=== PATIENT | female | born 1950 | race American Indian/Alaskan Native ===

== ENCOUNTER 2017-02-03 10:00 | Outpatient (CLI) | payer MEDICARE, OTHER ==
--- NOTE | 2017-02-03 10:53 | XRay Report ---
XRAY BILATERAL KNEE THREE VIEWS EACH STANDIN02/03/17 10:00:00 CLINICAL: Bilateral knee pain. FINDINGS: Right: Mild osteopenia. No fracture or dislocation. Moderate medial joint space narrowing with large osteophytes. Slight widening of the lateral joint space. Minimal patellofemoral joint arthritis. No joint effusion. Normal soft tissues. Left: Mild osteopenia. No fracture or dislocation. Medial joint space narrowing with small osteophytes. Slight widening of the lateral joint space. Minimal patellofemoral joint arthritis. No joint effusion.Normal soft tissues. IMPRESSION: Bilateral medial joint space osteoarthritis. Minimal patellofemoral joint osteoarthritis.
== END 2017-02-03 10:01 | disposition home or self-care (01) ==
LOC: SPVIMAG 10:00
PROVIDERS: ATTEND Orthopaedic Surgery Sports Medicine
DX: M17.0 Bilateral primary osteoarthritis of knee (principal); M85.862 Other specified disorders of bone density and structure, left lower leg; M85.861 Other specified disorders of bone density and structure, right lower leg; M25.762 Osteophyte, left knee; M25.761 Osteophyte, right knee

== ENCOUNTER 2017-06-28 08:17 | Outpatient (CLI) | payer MEDICARE, OTHER ==
[2017-06-28 09:18] LABS: Blood Urea Nitrogen 13 mg/dL (7-17)
--- NOTE | 2017-06-28 12:21 | Cat Scan Report ---
CT chest with contrast: Left breast cancer followup. Following IV contrast transverse images are obtained through the chest into the upper abdomen. Coronal and sagittal 2-D images included. Comparison is made to prior exam in December 2015. There has been interval removal of a right breast implant. There are stable calcifications in the left thyroid lobe. No axillary, hilar or mediastinal adenopathy appreciated. No pulmonary nodules noted. Smooth pleural surfaces. The visualized liver is normal. No suspicious osseous changes. Impression: No evidence of metastatic or recurrent malignancy.
--- NOTE | 2017-06-28 13:04 | Cat Scan Report ---
CT abdomen and pelvis with contrast: Breast malignancy followup. Following IV and oral contrast images are obtained through the abdomen and pelvis with coronal and sagittal 2-D reformatted images. Comparison made to prior exam on December 30, 2015. The abdominal organs are unremarkable. There is a stable 3.6 cm cyst in the right kidney and 8.7 mm cyst on the left. The retroperitoneal structures are not otherwise remarkable. The partially opacified bowel and mesentery appear normal. Normal-sized uterus with a cluster of calcifications. Lower lumbar spine apophyseal arthropathy and degenerative gas in the L4-5 interspace. Left hip prosthesis. No bony metastases identified. Impression: Stable findings. No evidence of metastatic disease.
== END 2017-06-28 08:18 | disposition home or self-care (01) ==
LOC: CT 08:17
PROVIDERS: ATTEND Internal Medicine Hematology & Oncology
DX: C50.912 Malignant neoplasm of unspecified site of left female breast (principal); I97.2 Postmastectomy lymphedema syndrome; L58.9 Radiodermatitis, unspecified; E07.89 Other specified disorders of thyroid; N28.1 Cyst of kidney, acquired; M12.88 Other specific arthropathies, not elsewhere classified, other specified site; M79.89 Other specified soft tissue disorders; Z96.642 Presence of left artificial hip joint; Z17.0 Estrogen receptor positive status [ER+]
CPT/HCPCS: 36415; 71260; 74177; 82565; 84520; Q9967

== ENCOUNTER 2017-09-11 11:24 | Outpatient (CLI) | payer MEDICARE, OTHER ==
--- NOTE | 2017-09-11 15:30 | Mammography Report ---
BONE DEXA:09/11/17 11:24:00 CLINICAL: Postmenopausal and history of left breast cancer on Arimidex. TECHNIQUE: Two site bone DEXA performed on an Hologic scanner. FINDINGS: The average BMD of the lumbar spine L1-L4 is 1.119g/cm squared with a T-score of -0.3 and a Z-score of +1.9. The average BMD of the right hip is 0.931g/cm squared with a T-score of -0.6 and a Z-score of +0.4. IMPRESSION: WHO classification: Normal with average fracture risk based on both spine and right hip measurements. RECOMMENDATION: Clinical correlation and routine screening. DEFINITIONS: BMD = Bone Mineral Density T-score = BMD related to mean peak bone mass of young adult (mean expressed in Standard Deviation) Z-score = Age matched BMD expressed in SD World Health Organization (WHO) Diagnostic Criteria Normal T-score > -1 SD Osteopenia T-score between -1 and -2.4 SD Osteoporosis T-score -2.5 SD or below NOTE: BMD is not the only risk factor for fracture. One should also consider factors such as the patient's age, risk of falling, previous osteoporotic fracture, family history of osteoporotic fractures, current smoker, and low body weight. Z-scores are not calculated if >80 years of age.
== END 2017-09-11 11:25 | disposition home or self-care (01) ==
LOC: SPVWC 11:24
PROVIDERS: ATTEND Internal Medicine Hematology & Oncology
DX: Z13.820 Encounter for screening for osteoporosis (principal); L58.9 Radiodermatitis, unspecified; Z17.0 Estrogen receptor positive status [ER+]; Z78.0 Asymptomatic menopausal state; Z85.3 Personal history of malignant neoplasm of breast
CPT/HCPCS: 77080

== ENCOUNTER 2020-05-18 07:05 | Outpatient (CLI) | payer MEDICARE, OTHER ==
--- NOTE | 2020-05-18 08:02 | Ultrasound Report ---
Limited bilateral axillary Ultrasound HISTORY: MALIGNANT NEOPLASM. Patient with history of bilateral mastectomy presents with right axilla ry discomfort TECHNIQUE: Grayscale and color imaging performed. COMPARISON: CT chest from 06/28/2017 FINDINGS: There are a couple shoddy right axillary lymph nodes with largest measuring 9 mm in short a xis. There is no asymmetric cortical thickening. No abnormality seen in the left axilla. IMPRESSION: A couple shoddy right axillary lymph nodes are noted which do not appear to be grossly pa thologic; however, given the patient's history, clinical follow-up with close attention recommended t o ensure resolution. Signer Name: Tom West MD Signed: 05/18/2020 7:58 AM Workstation Name: [id number]
== END 2020-05-18 07:06 | disposition home or self-care (01) ==
LOC: US 07:05
PROVIDERS: ATTEND Internal Medicine Hematology & Oncology
DX: C50.912 Malignant neoplasm of unspecified site of left female breast (principal); M79.89 Other specified soft tissue disorders; I97.2 Postmastectomy lymphedema syndrome; L58.9 Radiodermatitis, unspecified; Z17.0 Estrogen receptor positive status [ER+]

== ENCOUNTER 2021-01-25 09:18 | Outpatient (CLI) | payer MEDICARE, OTHER ==
--- NOTE | 2021-01-25 10:02 | Ultrasound Report ---
ULTRASOUND BREAST RIGHT LIMITED, 01/25/2021 CLINICAL INFORMATION / INDICATION: Follow-up right axillary lymph nodes. History of bilateral mastect alesia with soreness in the right axilla TECHNIQUE: Targeted ultrasound evaluation was performed of the area of interest. COMPARISON: 05/18/2020 FINDINGS: 3 lymph nodes are identified in the right axilla. These measure up to 7 mm in short axis the cortex a ppears thin and these have normal fatty moody and are morphologically unremarkable. IMPRESSION: No sonographic evidence of malignancy. The right axillary lymph nodes are morphologically unremarkable. Follow up recommendation: Clinical exam BI-RADS Category 2: Benign. A normal or "negative" report should not preclude biopsy or follow-up of a clinically suspicious find ing. Signer Name: Vikram Moreira MD Signed: 01/25/2021 9:58 AM Workstation Name: [id number]
== END 2021-01-25 09:19 | disposition home or self-care (01) ==
LOC: US 09:18
DX: R92.8 Other abnormal and inconclusive findings on diagnostic imaging of breast (principal)

== ENCOUNTER 2021-05-06 10:28 | Outpatient (CLI) | payer MEDICARE, OTHER ==
--- NOTE | 2021-05-06 12:02 | Ultrasound Report ---
ULTRASOUND AXILLA RIGHT LIMITED, 05/06/2021 CLINICAL INFORMATION / INDICATION: RIGHT AXILLARY PAIN WITH SHOTTY NODE. TECHNIQUE: Targeted ultrasound evaluation was performed of the area of interest. COMPARISON: 01/25/2021 FINDINGS: Examination of the axilla in the area of pain shows several benign-appearing small lymph no suman. One deep node with short axis diameter of 9 mm has a slightly thickened cortex at just under 4 m m though probably has not changed significantly from prior study. A superficial mixed echogenicity po ssible lymph node is seen which if a node has a normal cortical thickness though this may just be gregor ast tissue. No lesions are seen thought likely to be significant. IMPRESSION: Probably benign axillary nodes are seen Follow up recommendation: Clinical correlation is suggested. If there is immediate concern mammograph y could be performed as best possible to view the axilla. Otherwise I would recommend follow-up in 6 months with ultrasound and BI-RADS Category 3: PROBABLY BENIGN. Followup in 6 months. A normal or "negative" report should not preclude biopsy or follow-up of a clinically suspicious find ing. Signer Name: Skinny Ruth MD Signed: 05/06/2021 11:58 AM Workstation Name: [id number]
== END 2021-05-06 10:29 | disposition home or self-care (01) ==
LOC: US 10:28
PROVIDERS: ATTEND Internal Medicine Hematology & Oncology
DX: C50.912 Malignant neoplasm of unspecified site of left female breast (principal); M79.89 Other specified soft tissue disorders; L58.9 Radiodermatitis, unspecified; I97.2 Postmastectomy lymphedema syndrome; Z17.0 Estrogen receptor positive status [ER+]

== ENCOUNTER 2021-06-28 06:18 | Day surgery (SDC) | payer MEDICARE, OTHER ==
[2021-06-28] MEDS ORDERED: ASPIRIN EC 325 MG TAB PO NR (06:53)
[2021-06-28 07:10] LABS: Basophils % (Auto) 0.2 % (0.0-1.8); Eosinophils # (Auto) 0.1 K/mm3 (0.0-0.4); Eosinophils % (Auto) 2.2 % (0.0-4.3); Hematocrit 33.5 % (30.3-42.9); Hemoglobin 11.1 gm/dl (10.1-14.3); Lymphocytes # (Auto) 1.8 K/mm3 (1.2-5.4); Lymphocytes % (Auto) 31.7 % (13.4-35.0); Mean Corpuscular HGB Conc 33 % (30-34); Mean Corpuscular Volume 87 fl (79-97); Monocytes # (Auto) 0.7 K/mm3 (0.0-0.8); Monocytes % (Auto) 12.5 % (0.0-7.3); Platelet Count 201 K/mm3 (140-440); Red Blood Count 3.87 M/mm3 (3.65-5.03)
[2021-06-28 07:20] LABS: INR 0.91 (0.87-1.13); Partial Thromboplastin Time 24.1 Sec. (24.2-36.6)
[2021-06-28 07:21] LABS: BUN/Creatinine Ratio 10; Blood Urea Nitrogen 8 mg/dL (7-17); Calcium 9.4 mg/dL (8.4-10.2); Hemolysis Index 0
[2021-06-28] MEDS ORDERED: HEPARIN 10,000 UNITS/10 ML VIAL ONE (08:00)
[2021-06-28] MEDS ORDERED: HEPARIN/NS 5000 UNIT/500ML 1,000 ML IR ONE (08:00)
[2021-06-28] MEDS ORDERED: VERAPAMIL 5 MG/2 ML INJ ONE (08:00)
[2021-06-28] MEDS ORDERED: NITROGLYCERIN SYRINGE 3 ML ONE (08:01)
[2021-06-28] MEDS ORDERED: LIDOCAINE (2%) 20 MG/1 ML VIAL 20 ML MDV INFILTRATI ONE (08:01)
[2021-06-28] MEDS: SODIUM CHLORIDE 0.9% 500 ML 500 ML IV SCH ×2 (08:02→08:50)
[2021-06-28] MEDS ORDERED: fentaNYL 100 MCG/2 ML INJ ONE (08:22)
[2021-06-28] MEDS ORDERED: MIDAZOLAM 2 MG/2 ML INJ ONE (08:22)
--- NOTE | 2021-06-28 09:12 | Short Stay Summary ---
Short Stay Documentation Date of service: 06/28/21 Narrative H&P: see short stay form - History Past Medical History: hypertension, hyperlipidemia, stroke Past Surgical History: no No surgical history Social history: no no significant social history - Allergies and Medications Current Medications: Allergies No Known Allergies Allergy (Verified 06/28/21 07:00) Home Medications Medication Instructions Recorded Confirmed Last Taken Type Anastrozole [Arimidex] 1 mg PO DAILY 06/28/21 06/28/21 06/27/21 History 1 mg Aspirin EC [Halfprin EC] 2 tab PO QDAY 06/28/21 06/28/21 06/28/21 07:29 History 2 tab AtorvaSTATin [Lipitor] 40 mg PO DAILY 06/28/21 06/28/21 06/27/21 History 40 mg Ergocalciferol (Vitamin D2) 50,000 units PO QWEEK 06/28/21 06/28/21 06/27/21 History [Vitamin D2] 99728 Furosemide [Lasix TAB] 20 mg PO PRN PRN 06/28/21 06/28/21 06/18/21 History 20 mg Leflunomide [Arava] 20 mg PO DAILY 06/28/21 06/28/21 06/27/21 History 20 mg Losartan/Hydrochlorothiazide 1 tab PO DAILY 06/28/21 06/28/21 06/27/21 History [Losartan-Hctz 100-12.5 mg Tab] 1 tab Metformin HCl [metFORMIN ER 500 mg PO BID 06/28/21 06/28/21 06/27/21 History Osmotic] 500 mg Potassium Chloride [K-Dur] 10 meq PO PRN PRN 06/28/21 06/28/21 06/18/21 History 10 meq Prednisone [predniSONE (Lexis) ER 5 mg PO Q48H 06/28/21 06/28/21 06/27/21 History TAB] 5 mg Terbinafine HCl [LamiSIL] 250 mg PO DAILY 06/28/21 06/28/21 06/27/21 History 250 mg amLODIPine 5 mg PO DAILY 06/28/21 06/28/21 06/27/21 History 5 mg atenoloL [Tenormin] 50 mg PO DAILY 06/28/21 06/28/21 06/28/21 History 50 mg Active Medications Sodium Chloride (Nacl 0.9% 500 Ml) 500 mls @ 50 mls/hr IV DIRECT KERRY Stop: 06/28/21 16:59 Last Admin: 06/28/21 08:50 Dose: 50 mls/hr - Physical exam General appearance: no acute distress HEENT: PERRLA Lungs: Clear to auscultation Breasts: deferred Heart: Regular rate Gastrointestinal: normal Female Genitourinary: deferred Rectal Exam: deferred Extremities: no ischemia - Brief post op/procedure progress note Date of procedure: 06/28/21 Pre-op diagnosis: abnl stress test Post-op diagnosis: other Procedure: see dictated report normal coronaries and normal lv function Anesthesia: local Estimated blood loss: minimal Pathology: none - Disposition Condition at discharge: Good Disposition: 01 HOME / SELF CARE / HOMELESS - Discharge Diagnoses (1) CVA (cerebral vascular accident) Status: Chronic Qualifiers: Laterality of affected vessel: unspecified (2) Hypertension Status: Chronic Qualifiers: Hypertension type: primary hypertension Qualified Code(s): I10 - Essential (primary) hypertension (3) Hyperlipidemia Status: Chronic Qualifiers: Hyperlipidemia type: mixed hyperlipidemia Qualified Code(s): E78.2 - Mixed hyperlipidemia (4) Abnormal nuclear stress test Status: Resolved (5) Diabetes mellitus Status: Acute Qualifiers: Diabetes mellitus type: type 2 Diabetes mellitus complication status: with circulatory complication Diabetes mellitus complication detail: with other circulatory complications Short Stay Discharge Plan Activity: advance as tolerated Diet: low fat, low cholesterol, low salt, diabetic Wound: keep clean and dry Special Instructions: hold Metformin (for two days) Follow up with: PASQUALE CHAN MD [Primary Care Provider] - 7 Days
--- NOTE | 2021-06-28 09:22 | Cardiac Catherization Report ---
DATE OF SERVICE: 06/28/2021 LEFT HEART CATHETERIZATION ORDERING PHYSICIAN: Dr. Rika Hook CLINICAL INFORMATION: This is a 70-year-old female, history of stroke, cardiomyopathy, abnormal stress test, here for left heart cath. Left heart catheterization done with moderate sedation started at 08:45, finished at 09:00, 15 minutes of moderate sedation. DESCRIPTION OF PROCEDURE: Procedure was done via the right radial artery, sterile technique and local anesthesia. A 6-Georgian radial sheath inserted. Left system engaged with a JL3.5 catheter. Left main is large and patent, bifurcates into large LAD that is patent with moderate tortuosity. Diagonal 1 is a medium caliber vessel, patent. Circumflex large caliber, was patent, goes into a large OM1 with multiple branches that are patent. RCA is engaged with JR4 catheter, was a medium caliber vessel, patent proximally and distally. Small PDA and PLV are patent. LV gram done in [place] and ETIENNE view shows normal LV function, EF 50%-55%. LVEDP of 23 mmHg, LV is 140, aortic was 140/85. No gradient across the aortic valve. The 5-Georgian catheters, all taken over a guidewire. A 6-Georgian radial sheath was discontinued. Radial band applied. No hematoma, no bleeding.. SUMMARY: Left main patent, LAD patent, circ patent, RCA patent with normal LV function. Continue risk factor modification with normal coronaries. Discussed in detail with the patient and the patient's family. TID: [id number] RECEIPT: [id number] [facility]/LYN LOMAS
[2021-06-28] MEDS ORDERED: HYDROcodone/ACETAMINOPHEN 5-325 MG TAB PO PRN (09:30)
[2021-06-28] MEDS ORDERED: traMADol 50 MG TAB PO PRN (09:30)
[2021-06-28 12:34] VITALS: BP 143/70
[2021-06-28] MEDS ORDERED: ACETAMINOPHEN 325 MG TAB PO ONE (13:00)
--- NOTE | 2021-06-29 10:24 | Electrocardiograph Report ---
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
== END 2021-06-28 12:54 | disposition home or self-care (01) ==
LOC: CATHLABREC 06:18
PROVIDERS: ATTEND Internal Medicine
DX: R94.39 Abnormal result of other cardiovascular function study (principal); I42.9 Cardiomyopathy, unspecified; I10 Essential (primary) hypertension; E78.5 Hyperlipidemia, unspecified; G62.9 Polyneuropathy, unspecified; E11.51 Type 2 diabetes mellitus with diabetic peripheral angiopathy without gangrene; M19.90 Unspecified osteoarthritis, unspecified site; F41.9 Anxiety disorder, unspecified; Z79.899 Other long term (current) drug therapy; Z79.82 Long term (current) use of aspirin; Z87.891 Personal history of nicotine dependence; Z98.49 Cataract extraction status, unspecified eye; Z85.3 Personal history of malignant neoplasm of breast; Z90.13 Acquired absence of bilateral breasts and nipples; Z90.710 Acquired absence of both cervix and uterus; Z96.649 Presence of unspecified artificial hip joint; Z98.890 Other specified postprocedural states; Z86.73 Personal history of transient ischemic attack (TIA), and cerebral infarction without residual deficits
CPT/HCPCS: 36415; 80048; 85025; 85610; 85730; 93005; 93458; 99156; C1894; J1644; J1815; J2250; J3010; J3490; J7040; Q9967

== ENCOUNTER 2021-07-29 07:56 | Outpatient (CLI) | payer MEDICARE, OTHER ==
--- NOTE | 2021-07-29 09:30 | Ultrasound Report ---
ULTRASOUND RENAL INDICATION / CLINICAL INFORMATION: E11.22 CHRONIC KIDNEY DISEASE. COMPARISON: None available. FINDINGS: RIGHT KIDNEY: Length = 10.6 cm. - Echogenicity: Normal. - Cortical Thickness: Normal. - Hydronephrosis: None. - Cyst / Mass: Multiple cysts, largest measuring up to 3.3 cm near the hilum. - Stones: None seen. LEFT KIDNEY: Length = 11.2 cm. - Echogenicity: Normal. - Cortical Thickness: Normal. - Hydronephrosis: None. - Cyst / Mass: Upper pole cyst measuring up to 1.3 cm. - Stones: None seen. URINARY BLADDER: No significant abnormality. FREE FLUID: None. ADDITIONAL FINDINGS: None. IMPRESSION: 1. No significant abnormality. 2. Bilateral renal cysts. Signer Name: Sandip Armas MD Signed: 07/29/2021 9:26 AM Workstation Name: [email or web address]
== END 2021-07-29 07:57 | disposition home or self-care (01) ==
LOC: US 07:56
PROVIDERS: ATTEND Internal Medicine Nephrology
DX: N28.1 Cyst of kidney, acquired (principal); E11.22 Type 2 diabetes mellitus with diabetic chronic kidney disease; R80.9 Proteinuria, unspecified
CPT/HCPCS: 76770